=== PATIENT | female | born 1990 | race Caucasian/White ===

== ENCOUNTER → 2017-01-21 | Outpatient (CLI) | payer BC ==
[2017-01-21 14:00] LABS: BASOPHILS % (AUTO) 0 % (0-10); EOSINOPHILS # (AUTO) 0.1 10^3/uL (0.0-0.3); EOSINOPHILS % (AUTO) 2 % (0-10); LYMPHOCYTES # (AUTO) 1.9 X 10^3 (1.0-4.0); LYMPHOCYTES % (AUTO) 25 % (12-44); MEAN CORPUSCULAR HEMOGLOBIN 31 PG (25-34); MEAN CORPUSCULAR HGB CONC 34 G/DL (32-36); MEAN CORPUSCULAR VOLUME 93 FL (80-99); MEAN PLATELET VOLUME 10.3 FL (7.4-10.4); MONOCYTES # (AUTO) 0.6 X 10^3 (0.0-1.0); MONOCYTES % (AUTO) 8 % (0-12); NEUTROPHILS # (AUTO) 5.1 X 10^3 (1.8-7.8); NEUTROPHILS % (AUTO) 65 % (42-75); PLATELET COUNT 293 10^3/uL (130-400); RED BLOOD COUNT 4.28 10^6/uL (4.35-5.85); RED CELL DISTRIBUTION WIDTH 12.3 % (10.0-14.5); WHITE BLOOD COUNT 7.8 10^3/uL (4.3-11.0)
[2017-01-21 14:29] LABS: BILIRUBIN,URINE NEGATIVE (NEGATIVE); KETONES,URINE 4+ (NEGATIVE); LEUKOCYTE ESTERASE ,URINE 3+ (NEGATIVE); NITRITE,URINE NEGATIVE (NEGATIVE); PH,URINE 5 (5-9); PROTEIN,URINE 1+ (NEGATIVE); UROBILINOGEN,URINE NORMAL (NORMAL)
--- NOTE | 2017-01-21 16:03 | Diagnostic Imaging Report ---
PROCEDURE: CT abdomen and pelvis without contrast. TECHNIQUE: Multiple contiguous axial images were obtained through the abdomen and pelvis without the use of intravenous contrast. INDICATION: Right lower quadrant pain. FINDINGS: The lung bases appear clear. The liver, the gallbladder, the spleen, the pancreas, and the adrenals appear unremarkable for an unenhanced exam. No urinary tract stones are seen. There are bilateral pelvic masses with heterogeneous content that includes fat, calcification and intermediate density material. The larger lesion is on the left side measuring 10.6 x 6.9 x 8.5 cm. The mass on the right side is projecting slightly superiorly and centrally and measures 7 x 5.5 x 6.4 cm. These are compatible with bilateral ovarian mature cystic teratomas (dermoids). There is no bowel obstruction. The appendix is not definitely seen on this study without intravenous and without oral contrast. A questioned partially visualized tubular structure adjacent to the cecum could possibly represent a normal appendix, however. There is no abscess. Correlate clinically. There is no significant free fluid or fluid collection in the abdomen or pelvis identified. The osseous structures appear grossly unremarkable. IMPRESSION: Large bilateral ovarian mature cystic teratomas. The findings were discussed with Ms. Damari Zamudio, the nurse practitioner taking care of the patient at time of dictation. Dictated by: Dictated on workstation # [id number]
== END ==
LOC: RAD 13:31
PROVIDERS: ATTEND Nurse Practitioner Family
DX: D27.0 Benign neoplasm of right ovary (principal); D27.1 Benign neoplasm of left ovary
CPT/HCPCS: 36415; 74176; 81000; 85025; 87088

== ENCOUNTER → 2017-02-02 | Outpatient (CLI) | payer BC ==
--- NOTE | 2017-02-02 17:56 | Diagnostic Imaging Report ---
INDICATION: Ovarian lesions. COMPARISON: Comparison limited to a noncontrast enhanced pelvic CT performed 01/21/2017. FINDINGS: No normal-appearing ovarian tissue could be identified left or right. There is a large left adnexal echogenic mass effect measuring 9.2 x 7.0 x 5.8 cm. This is presumed greater than 10 cm fat-containing mass noted at prior. The more anterior and right-sided eccentric right adnexal lesion cannot be visualized on this exam. The uterus and endometrium appear normal. No pelvic free fluid or fluid collection. IMPRESSION: Large ovarian fat-containing masses noted at CT are less well seen at this exam. There is partial visualization of the left-sided lesion and the right one could not be identified. No pelvic free fluid; however, normal appearance of the uterus and endometrium. Dictated by: Dictated on workstation # [id number]
== END ==
LOC: RAD 17:03
PROVIDERS: ATTEND Obstetrics & Gynecology
DX: D27.1 Benign neoplasm of left ovary (principal)
CPT/HCPCS: 76830; 76856

== ENCOUNTER → 2018-04-19 | Outpatient (CLI) | payer BC, OTHER ==
[~2018-04-19] MED LIST: IOHEXOL 350 MG/ML 100 ML (OMNIPAQUE 350) VIAL IV ONE; NS 250 ML (IVPB) BAG IV ONE
--- NOTE | 2018-04-19 17:53 | Diagnostic Imaging Report ---
PROCEDURE: CT abdomen and pelvis with contrast. TECHNIQUE: Multiple contiguous axial images were obtained through the abdomen and pelvis after administration of intravenous contrast. INDICATION: Pelvic pain. History of ovarian cyst. COMPARISON: 01/21/2017 FINDINGS: Lower chest: The lung bases are clear. No pericardial or pleural effusion. Peritoneum: No free intraperitoneal air or fluid. Liver and biliary system: The liver is normal. The gallbladder is normal. No biliary duct dilation. Spleen and Pancreas: Spleen is normal. The pancreas enhances normally without mass lesion or peripancreatic inflammatory changes. Adrenals: Normal. tract: The kidneys enhance normally without suspicious mass or obstruction. Urinary bladder is distended without wall thickening. Uterus is normal in appearance. The large fat-containing teratoma within the left adnexa has been resected. There remains a small fat-containing ovoid mass within the left adnexa measuring 2.9 x 2.9 x 2.1 cm. No right adnexal mass. GI tract: Stomach is decompressed. No bowel obstruction. No pericolonic inflammatory changes. Normal appendix. Vasculature and Lymph nodes: Normal caliber aorta. No abdominal or pelvic lymphadenopathy. Musculoskeletal: No concerning osseous lesion. IMPRESSION: 1. Recurrent versus residual left adnexal fat-containing teratoma, measuring 2.9 x 2.9 x 2.2 cm. The remainder of the bilateral adnexal teratomas have been removed. Dictated by: Dictated on workstation # [id number]
== END ==
LOC: RAD 16:47
PROVIDERS: ATTEND Midwife
DX: N83.8 Other noninflammatory disorders of ovary, fallopian tube and broad ligament (principal); Z87.42 Personal history of other diseases of the female genital tract
CPT/HCPCS: 74177

== ENCOUNTER 2023-06-06 18:08 | Emergency (ER) | payer BC ==
[~2023-06-06] VITALS: Ht 167 cm; Wt 96.6 kg
[2023-06-06] MEDS ORDERED: ONDANSETRON INJECTION 4 MG/2 ML (SDV) IVP ONE (18:30)
[2023-06-06] MEDS ORDERED: LACTATED RINGERS 1,000 ML 1,000 ML IV ONE (18:30)
[2023-06-06] MEDS ORDERED: PANTOPRAZOLE INJECTION 40 MG VIAL IV ONE (18:30)
--- NOTE | 2023-06-06 18:36 | ED Abdominal Pain ---
General Chief Complaint: Abdominal/GI Problems Stated Complaint: AB PAIN Nursing Triage Note: PT PRESENTS TO ED VIA POV FROM HOME WITH COMPLAINTS OF UPPER ABDOMINAL PAIN X 5 DAYS, THAT IS WORSE AFTER EATING. PT WAS SEEN AT URGENT CARE YESTERDAY AND DIAGNOSED WITH GASTRITIS AND PRESCRIBED CARAFATE. PT REPROTS NO IMPROVEMENT. PT REPORTS FEELING NAUSEATED AND VOMITING X 1 TODAY. Source of Information: Patient History of Present Illness Date Seen by Provider: Jun 06, 2023 Time Seen by Provider: 18:17 Initial Comments PT ARRIVES VIA POV FROM HOME WITH MOTHER C/O EPIGASTRIC PAIN SINCE Thursday06/02/23 PAIN COMES AND GOES, WORSE WITH EATING PAIN OCCASIONALLY RADIATES OUT TO BOTH RUQ AND LUQ HAS HAD CONSTANT NAUSEA, VOMITED X 1 TODAY, AND HAD DRY HEAVES HAD NORMAL BM TODAY NO URINARY SYMPTOMS AND VOIDED A NORMAL AMOUNT NO FEVER ATE A SNACK BAR TODAY AT 1330--ONLY FOOD INTAKE TODAY HAS BEEN DRINKING WATER TODAY--IT DOES NOT WORSEN SYMPTOMS LMP 2 WEEKS AGO, NORMAL. NO CONTROL NO HISTORY OF SIMILAR PT HAS HAD BILATERAL OVARIAN DERMOID CYST REMOVALS IN THE PAST, NO OTHER ABDOMINAL SURGERIES OR GI PROBLEMS NO DAILY MEDICATIONS OR CHRONIC MEDICAL PROBLEMS WENT TO [facility] YESTERDAY FOR THIS PROBLEM, NO TESTS WERE DONE, WAS DX WITH GASTRITIS AND GIVEN RX FOR CARAFATE AND HAS BEEN TAKING OTC PEPCID WITHOUT RELIEF THERE IS STRONG FAMILY HISTORY OF GALLBLADDER DISEASE--MOTHER, MATERNAL AUNTS PCP: GABBY HAYDEN Allergies and Home Medications Allergies Coded Allergies: No Known Drug Allergies (Unverified , 05/01/11) Patient Home Medication List Home Medication List Reviewed: Yes Cefdinir (Cefdinir) 300 Mg Capsule, 300 MG PO BID Prescribed by: NASIMA SUGGS on 06/06/232019 Dicyclomine HCl (Dicyclomine HCl) 20 Mg Tablet, 20 MG PO Q6H Prescribed by: NASIMA SUGGS on 06/06/232019 Ondansetron (Ondansetron Odt) 4 Mg Tab.rapdis, 4 MG PO Q4H Prescribed by: NASIMA SUGGS on 06/06/232019 Pantoprazole Sodium (Protonix) 40 Mg Tablet.dr, 40 MG PO DAILY Prescribed by: NASIMA SUGGS on 06/06/232019 Review of Systems Review of Systems Constitutional: no symptoms reported Respiratory: No Symptoms Reported Cardiovascular: No Symptoms Reported Gastrointestinal: See HPI, Abdominal Pain; Denies Constipated, Denies Diarrhea; Nausea, Poor Appetite, Vomiting Genitourinary: No Symptoms Reported Musculoskeletal: no symptoms reported Skin: no symptoms reported Psychiatric/Neurological: No Symptoms Reported Endocrine: No Symptoms Reported Hematologic/Lymphatic: No Symptoms Reported Past Syboywn-Eqsalv-Vvcpsg Hx Patient Social History Tobacco Use?: No Substance use?: No Alcohol Use?: Yes Alcohol Frequency: Rarely Pt feels they are or have been: No Past Medical History Surgery/Hospitalization HX: ovarian cyst removal Surgeries: Yes (BILAT DERMOID OVARIAN CYST REMOVALS;NOSE FX REPAIR;T&A) Adenoidectomy, Nose, Tonsillectomy Respiratory: No Cardiac: No Neurological: No : No Reproductive Disorders: Yes (BILAT DERMOID OVARIAN CYST REMOVALS) Female Reproductive Disorders: Ovarian Cyst Genitourinary: No Gastrointestinal: No Musculoskeletal: No Endocrine: No HEENT: Yes (NOSE FX/REPAIR; T&A) Tonsilitis Cancer: No Psychosocial: No Integumentary: No Blood Disorders: No Physical Exam Vital Signs Vital Signs - First Documented 06/06/23 18:22 Temp 37.5 Pulse 86 Resp 18 B/P (MAP) 147/86 (106) Pulse Ox 95 Capillary Refill : Less Than 3 Seconds Height/Weight/BMI Height: '" Weight: lbs. oz. kg; 34.00 BMI Method: General Appearance: WD/WN, no apparent distress, other (WALKS UPRIGHT AND MOVES WITHOUT DIFFICULTY, SITTING UP, DOES NOT APPEAR TO BE IN ANY DISCOMFORT OR DISTRESS. ) HEENT: PERRL/EOMI; No scleral icterus (R), No scleral icterus (L) Neck: normal inspection Respiratory: normal breath sounds, no respiratory distress, no accessory muscle use Cardiovascular: regular rate, rhythm, no murmur Gastrointestinal: normal bowel sounds, soft, no organomegaly, no pulsatile mass; No distended, No guarding, No rebound; tenderness (EPIGASTRIC ); No hernia, No mass Extremities: normal inspection, normal capillary refill Back: normal inspection, no CVA tenderness Neurologic/Psychiatric: social work therapist II-XII nml as tested, no motor/sensory deficits, alert, normal mood/affect, oriented x 3 Skin: normal color, warm/dry; No rash Progress/Results/Core Measures Results/Orders Lab Results Laboratory Tests Test 06/06/23 18:30 06/06/23 18:40 Range/Units Urine Color YELLOW Urine Clarity CLEAR Urine pH 5.5 5-9 Urine Specific [place] 1.020 1.016-1.022 Urine Protein NEGATIVE NEGATIVE Urine Glucose (UA) NEGATIVE NEGATIVE Urine Ketones 4+ H NEGATIVE Urine Nitrite NEGATIVE NEGATIVE Urine Bilirubin 1+ H NEGATIVE Urine Urobilinogen 0.2 < = 1.0 MG/DL Urine Leukocyte Esterase 1+ H NEGATIVE Urine RBC (Auto) TRACE H NEGATIVE Urine RBC NONE /HPF Urine WBC 0-2 /HPF Urine Squamous Epithelial Cells 5-10 /HPF Urine Crystals NONE /LPF Urine Bacteria MODERATE H /HPF Urine Casts NONE /LPF Urine Mucus SMALL H /LPF Urine Culture Indicated YES Urine Opiates Screen NEGATIVE NEGATIVE Urine Oxycodone Screen NEGATIVE NEGATIVE Urine Methadone Screen NEGATIVE NEGATIVE Urine Barbiturates Screen NEGATIVE NEGATIVE Ur Tricyclic Antidepressants Screen NEGATIVE NEGATIVE Urine Phencyclidine Screen NEGATIVE NEGATIVE Urine Amphetamines Screen NEGATIVE NEGATIVE Urine Methamphetamines Screen NEGATIVE NEGATIVE Urine Benzodiazepines Screen NEGATIVE NEGATIVE Urine Cocaine Screen NEGATIVE NEGATIVE Urine Cannabinoids Screen NEGATIVE NEGATIVE White Blood Count 8.8 4.3-11.0 10^3/uL Red Blood Count 4.31 3.80-5.11 10^6/uL Hemoglobin 13.7 11.5-16.0 g/dL Hematocrit 41 35-52 % Mean Corpuscular Volume 94 80-99 fL Mean Corpuscular Hemoglobin 32 25-34 pg Mean Corpuscular Hemoglobin Concent 34 32-36 g/dL Red Cell Distribution Width 12.2 10.0-14.5 % Platelet Count 394 130-400 10^3/uL Mean Platelet Volume 10.2 9.0-12.2 fL Immature Granulocyte % (Auto) 0 % Neutrophils (%) (Auto) 74 42-75 % Lymphocytes (%) (Auto) 17 12-44 % Monocytes (%) (Auto) 7 0-12 % Eosinophils (%) (Auto) 1 0-10 % Basophils (%) (Auto) 1 0-10 % Neutrophils # (Auto) 6.5 1.8-7.8 10^3/uL Lymphocytes # (Auto) 1.5 1.0-4.0 10^3/uL Monocytes # (Auto) 0.6 0.0-1.0 10^3/uL Eosinophils # (Auto) 0.1 0.0-0.3 10^3/uL Basophils # (Auto) 0.1 0.0-0.1 10^3/uL Immature Granulocyte # (Auto) 0.0 0.0-0.1 10^3/uL Sodium Level 140 135-145 MMOL/L Potassium Level 3.8 3.6-5.0 MMOL/L Chloride Level 105 98-107 MMOL/L Carbon Dioxide Level 23 21-32 MMOL/L Anion Gap 12 5-14 MMOL/L Blood Urea Nitrogen 7 7-18 MG/DL Creatinine 0.79 0.60-1.30 MG/DL Estimat Glomerular Filtration Rate 102 BUN/Creatinine Ratio 9 Glucose Level 96 70-105 MG/DL Calcium Level 9.5 8.5-10.1 MG/DL Corrected Calcium 9.1 8.5-10.1 MG/DL Total Bilirubin 0.5 0.1-1.0 MG/DL Aspartate Amino Transf (AST/SGOT) 15 5-34 U/L Alanine Aminotransferase (ALT/SGPT) 14 0-55 U/L Alkaline Phosphatase 58 40-136 U/L Total Protein 7.5 6.4-8.2 GM/DL Albumin 4.5 3.2-4.5 GM/DL Amylase Level 47 25-125 U/L Lipase 21 8-78 U/L My Orders Orders - NASIMA SUGGS DO Urine Bedside (06/06/23 18:17) Ua Culture If Indicated (06/06/23 18:17) Ed Iv/Invasive Line Start (06/06/23 18:22) Amylase (06/06/23 18:22) Cbc And Automated Diff (06/06/23 18:22) Comprehensive Metabolic Panel (06/06/23 18:22) Drug Screen Stat (Urine) (06/06/23 18:22) Lipase (06/06/23 18:22) Ed Iv/Invasive Line Start (06/06/23 18:22) Lactated Ringers 1,000 Ml (Lactated Ring (06/06/23 18:30) Ondansetron Injection (Ondansetron Inj (06/06/23 18:30) Pantoprazole Injection (Pantoprazole Inj (06/06/23 18:30) Ct Abdomen/Pelvis W (06/06/23 18:38) Urine Culture (06/06/23 18:30) Iohexol Injection (Omnipaque 350 Mg/Ml 1 (06/06/23 19:15) Ns (Ivpb) 100 Ml (Sodium Chloride 0.9% 1 (06/06/23 19:15) Ceftriaxone Iv/Im (Ceftriaxone Iv/Im) (06/06/23 20:00) Ketorolac Injection (Ketorolac Injection (06/06/23 20:00) Rx-Ondansetron Po (Rx-Zofran Po) (06/06/23 19:51) Rx-Dicyclomine Capsule (Rx-Bentyl Capsul (06/06/23 19:51) Medications Given in ED Current Medications Medications Dose Ordered Sig/Maru Route Start Time Stop Time Status Last Admin Dose Admin Ceftriaxone Sodium 1000 mg/ Sodium Chloride 50 ml @ 100 mls/hr ONCE ONCE IV 06/06/23 20:00 06/06/23 20:29 DC 06/06/23 20:10 100 MLS/HR Iohexol 100 ml ONCE ONCE IV 06/06/23 19:15 06/06/23 19:16 DC 06/06/23 19:09 80 ML Ketorolac Tromethamine 30 mg ONCE ONCE IVP 06/06/23 20:00 06/06/23 20:01 DC 06/06/23 20:11 30 MG Lactated Ringer's 1,000 ml @ 0 mls/hr Q0M ONCE IV 06/06/23 18:30 06/06/23 18:31 DC 06/06/23 18:31 0 MLS/HR Ondansetron HCl 4 mg ONCE ONCE IVP 06/06/23 18:30 06/06/23 18:31 DC 06/06/23 18:31 4 MG Pantoprazole 40 mg ONCE ONCE IV 06/06/23 18:30 06/06/23 18:31 DC 06/06/23 18:31 40 MG Sodium Chloride 100 ml ONCE ONCE IV 06/06/23 19:15 06/06/23 19:16 DC 06/06/23 19:09 77 ML Vital Signs/I&O 06/06/23 06/06/23 18:22 20:33 Temp 37.5 Pulse 86 60 Resp 18 B/P (MAP) 147/86 (106) 141/91 Pulse Ox 95 99 Blood Pressure Mean: 106 Progress Progress Note : Progress Note VITALS ON ARRIVAL: TEMP 37.5=99.5, HR 86, RR 18, BP 147/86, O2 SAT 95% ON ROOM AIR GIVEN: -IV FLUIDS -ZOFRAN -PROTONIX -TORADOL -ROCEPHIN LABS: -CBC NORMAL WITH WBC 8.8 -CMP NORMAL -AMYLASE/LIPASE NORMAL -UA WITH 4+ KETONES, 1+ BILI, 1+ LEUKOCYTES, MODERATE BACTERIA -HCG NEGATIVE -UDS NEGATIVE CT ABDOMEN/PELVIS UNREMARKABLE SYMPTOMS MUCH IMPROVED WITH FLUIDS, ZOFRAN AND PROTONIX GIVEN TORADOL FOR MILD RESIDUAL PAIN GIVEN ROCEPHIN FOR UTI VITALS STABLE. DISCUSSED TEST RESULTS, ANTICIPATED COURSE, SYMPTOMATIC TREATMENT, DIET, MEDICATIONS, NEED FOR FOLLOW UP AND RETURN PRECAUTIONS NO ULTRASOUND AVAILABLE HER ALL WEEKEND. DISCUSSED POSSIBLE NEED FOR ADDITIONAL TESTING SUCH ABOMINAL ULTRASOUND, HIDA SCAN AND EGD FOR FURTHER OUTPATIENT TESTS TO EVALUATE HER SYMPTOMS. Diagnostic Imaging Comments CT ABDOMEN/PELVIS--PER RADIOLOGIST REPORT AT 1942 FINDINGS: There is no focal hepatic or splenic abnormality. Gallbladder, pancreas and adrenal glands are also unremarkable. No renal lesion is seen. There is no evidence of free fluid in the abdomen or pelvis. Portal vein has a normal appearance as does the superior mesenteric vein. There is no evidence of bowel obstruction. No pathologically enlarged adenopathy is identified. There is no evidence of organized fluid collection to indicate hematoma. The appendix has a normal appearance. Unopacified bladder is unremarkable. IMPRESSION: No evidence of acute abnormality. Reviewed: Reviewed by Me Departure Impression Primary Impression: Epigastric abdominal pain Additional Impressions: Nausea & vomiting Urinary tract infection Disposition: HOME, SELF-CARE Condition: Improved Departure-Patient Inst. Decision time for Depature: 19:50 Referrals: ARIC HAYDEN DO (PCP/Family) Primary Care Physician Patient Instructions: Nausea and Vomiting, Adult ED, Abdominal Pain, Adult ED, Urinary Tract Infection, Adult (DC) Add. Discharge Instructions: CLEAR LIQUIDS--WATER, BROTH, JELLO, GATORADE WHEN YOU ARE BETTER, ADD BRATS DIET TO CLEAR LIQUIDS--BANANAS, RICE, APPLESAUCE, TOAST, SALTINES CONTINUE CARAFATE PRESCRIBED. YOU MAY DISSOLVE IN WATER FIRST. HOLD PEPCID--THIS IS BEING REPLACED WITH PROTONIX FOLLOW UP WITH DR. HAYDEN'S OFFICE ON THURSDAY FOR FURTHER CARE RETURN TO ER IF SYMPTOMS WORSEN All discharge instructions reviewed with patient and/or family. Voiced understanding. Scripts Pantoprazole Sodium (Protonix) 40 Mg Tablet.dr 40 MG PO DAILY, #15 TAB Prov: NASIMA SUGGS DO 06/06/23 Ondansetron (Ondansetron Odt) 4 Mg Tab.rapdis 4 MG PO Q4H for Nausea/Vomiting, #10 TAB Prov: NASIMA SUGGS DO 06/06/23 Cefdinir (Cefdinir) 300 Mg Capsule 300 MG PO BID, #20 CAP Prov: NASIMA SUGGS DO 06/06/23 Dicyclomine HCl (Dicyclomine HCl) 20 Mg Tablet 20 MG PO Q6H for Abdominal Pain, #20 TAB Prov: NASIMA SUGGS DO 06/06/23 NASIMA SUGGS DO Jun 06, 2023 18:36
[2023-06-06 18:45] LABS: BASOPHILS # (AUTO) 0.1 10^3/uL (0.0-0.1); BASOPHILS % (AUTO) 1 % (0-10); EOSINOPHILS # (AUTO) 0.1 10^3/uL (0.0-0.3); EOSINOPHILS % (AUTO) 1 % (0-10); HEMATOCRIT 41 % (35-52); HEMOGLOBIN 13.7 g/dL (11.5-16.0); LYMPHOCYTES # (AUTO) 1.5 10^3/uL (1.0-4.0); LYMPHOCYTES % (AUTO) 17 % (12-44); MEAN CORPUSCULAR HEMOGLOBIN 32 pg (25-34); MEAN CORPUSCULAR HGB CONC 34 g/dL (32-36); MEAN CORPUSCULAR VOLUME 94 fL (80-99); MEAN PLATELET VOLUME 10.2 fL (9.0-12.2); MONOCYTES # (AUTO) 0.6 10^3/uL (0.0-1.0); MONOCYTES % (AUTO) 7 % (0-12); NEUTROPHILS # (AUTO) 6.5 10^3/uL (1.8-7.8); NEUTROPHILS % (AUTO) 74 % (42-75); PLATELET COUNT 394 10^3/uL (130-400); WHITE BLOOD COUNT 8.8 10^3/uL (4.3-11.0)
[2023-06-06 18:54] LABS: ALBUMIN 4.5 GM/DL (3.2-4.5)
[2023-06-06 18:55] LABS: POTASSIUM 3.8 MMOL/L (3.6-5.0)
[2023-06-06 18:56] LABS: CALCIUM 9.5 MG/DL (8.5-10.1)
[2023-06-06 18:57] LABS: TOTAL PROTEIN 7.5 GM/DL (6.4-8.2)
[2023-06-06 18:58] LABS: CLARITY,URINE CLEAR; COLOR,URINE YELLOW
[2023-06-06 18:59] LABS: BACTERIA,URINE MODERATE /HPF; BILIRUBIN,URINE 1+ (NEGATIVE); GLUCOSE, URINE (UA) NEGATIVE (NEGATIVE); KETONES,URINE 4+ (NEGATIVE); LEUKOCYTE ESTERASE ,URINE 1+ (NEGATIVE); NITRITE,URINE NEGATIVE (NEGATIVE); PH,URINE 5.5 (5-9); PROTEIN,URINE NEGATIVE (NEGATIVE); WBC,URINE 0-2 /HPF
[2023-06-06 18:59] LABS: BILIRUBIN,TOTAL 0.5 MG/DL (0.1-1.0)
[2023-06-06 19:01] LABS: CREATININE SERUM 0.79 MG/DL (0.60-1.30)
[2023-06-06 19:02] LABS: AMPHETAMINE SCREEN, URINE NEGATIVE (NEGATIVE); BARBITURATE SCREEN URINE NEGATIVE (NEGATIVE); CANNABINOID SCREEN, URINE NEGATIVE (NEGATIVE); COCAINE SCREEN URINE NEGATIVE (NEGATIVE); METHADONE STAT NEGATIVE (NEGATIVE); OPIATE SCREEN URINE NEGATIVE (NEGATIVE); OXYCODONE STAT NEGATIVE (NEGATIVE); TRICYCLIC ANTIDEPRESSANTS SCRE NEGATIVE (NEGATIVE)
[2023-06-06] MEDS ORDERED: IOHEXOL 350 MG/ML 100 ML (OMNIPAQUE 350) VIAL IV ONE (19:15)
[2023-06-06] MEDS ORDERED: NS 100 ML (IVPB) BAG IV ONE (19:15)
--- NOTE | 2023-06-06 19:23 | Diagnostic Imaging Report ---
PROCEDURE: CT abdomen and pelvis with contrast. TECHNIQUE: Multiple contiguous axial images were obtained through the abdomen and pelvis after administration of intravenous contrast. Auto Exposure Controls were utilized during the CT exam to meet ALARA standards for radiation dose reduction. All CT scans use one or more of the following dose optimizing techniques: automated exposure control, MA and/or KvP adjustment based on patient size and exam type or iterative reconstruction. INDICATION: Epigastric pain with nausea and emesis. COMPARISON: 04/19/2018. FINDINGS: There is no focal hepatic or splenic abnormality. Gallbladder, pancreas and adrenal glands are also unremarkable. No renal lesion is seen. There is no evidence of free fluid in the abdomen or pelvis. Portal vein has a normal appearance as does the superior mesenteric vein. There is no evidence of bowel obstruction. No pathologically enlarged adenopathy is identified. There is no evidence of organized fluid collection to indicate hematoma. The appendix has a normal appearance. Unopacified bladder is unremarkable. IMPRESSION: No evidence of acute abnormality. Dictated by: Dictated on workstation # [id number]
[2023-06-06] MEDS ORDERED: RX-DICYCLOMINE 10 MG (BENTYL) CAP PPK#4 PO STA (19:51)
[2023-06-06] MEDS ORDERED: RX-ONDANSETRON 4 MG ODT (ZOFRAN) PPK #4 PO STA (19:51)
[2023-06-06] MEDS ORDERED: CEFD300C3 PO ×2 (19:54→20:20)
[2023-06-06] MEDS ORDERED: ONDA4TAB11 PO ×2 (19:54→20:20)
[2023-06-06] MEDS ORDERED: DICY20TA PO ×2 (19:54→20:20)
[2023-06-06] MEDS ORDERED: PANT40TA2 PO ×2 (19:54→20:20)
[2023-06-06] MEDS ORDERED: KETOROLAC INJ 30 MG/ML VIAL IVP ONE (20:00)
[2023-06-06] MEDS ORDERED: cefTRIAXone IV/IM 1,000 MG in NS (IVPB) 50 ML 50 ML IV ONE (20:00)
[2023-06-06 20:33] VITALS: BP 141/91
== END 2023-06-06 20:33 | disposition home or self-care (01) ==
LOC: EDUNIT# 18:08 → ER 18:11
DX: N39.0 Urinary tract infection, site not specified (principal); R11.2 Nausea with vomiting, unspecified
CPT/HCPCS: 36415; 74177; 80053; 80306; 81000; 82150; 83690; 84703; 85025; 87088

== ENCOUNTER → 2023-06-12 | Outpatient (CLI) | payer BC ==
[~2023-06-12] MED LIST changes: +CATHETER FLUSH 10 ML SYR IVP PRN; +CEFD300C3 PO; +DICY20TA PO; -IOHEXOL 350 MG/ML 100 ML (OMNIPAQUE 350) VIAL IV ONE; -NS 250 ML (IVPB) BAG IV ONE; +ONDA4TAB11 PO; +PANT40TA2 PO
--- NOTE | 2023-06-12 09:52 | Diagnostic Imaging Report ---
HEPATOBILIARY SCAN DATE: June 12, 2023. INDICATION: 32-year-old female, right upper quadrant abdominal pain. COMPARISON: CT abdomen and pelvis June 06, 2023. PROCEDURE: 5.44 mCi of Tc-99m Choletec was administered intravenously and serial anterior planar images over the liver and upper abdomen were obtained. FINDINGS: There is homogenous activity throughout the liver with good clearance of background activity. This indicates good hepatocellular function. Biliary tree activity is seen at 10 minutes. The gallbladder is seen at 10 minutes. There is no enterogastric reflux. The biliary tree is patent. There is no evidence of acute cholecystitis. 8 ounces of Ensure plus was administered. Gallbladder ejection fraction was calculated to be 52%. IMPRESSION: Normal hepatobiliary scan. No evidence of acute or chronic cholecystitis. Dictated by: Dictated on workstation # [id number]
== END ==
LOC: CARD 07:15
PROVIDERS: ATTEND Nurse Practitioner Family
DX: R10.11 Right upper quadrant pain (principal)
CPT/HCPCS: 78227; A9537